=== PATIENT | female | born 2000 | race Caucasian/White ===

== ENCOUNTER 2022-03-07 19:20 | Emergency (ER) | payer BC ==
[2022-03-07 19:41] VITALS: BP 115/68; PULSE 73; TEMP 98.7; BMI 19.8
[2022-03-07] MEDS ORDERED: AZITHROMYCIN 500 MG TABLET PO ONE (20:55)
[2022-03-07] MEDS ORDERED: AZITHROMYCIN 500 MG TABLET ONE (20:57)
== END 2022-03-07 21:04 | disposition home or self-care (01) ==
LOC: FER 19:20
DX: J02.9 Acute pharyngitis, unspecified (principal)
CPT/HCPCS: 87070; 87651; 99283-25

== ENCOUNTER 2022-03-08 05:36 | Emergency (ER) | payer BC ==
[2022-03-08 05:41] VITALS: BP 109/69; PULSE 107; TEMP 99.3; BMI 19.8
[2022-03-08] MEDS ORDERED: AMPICILLIN NA/SULBACTAM NA 3 GM in SODIUM CHLORIDE 100 ML IVPB ONE (05:51)
[2022-03-08] MEDS ORDERED: methylPREDNISolone NA SUCC 125 MG/2 ML VIAL IVPB ONE (05:52)
[2022-03-08] MEDS ORDERED: methylPREDNISolone NA SUCC 125 MG/2 ML VIAL ONE (05:55)
[2022-03-08] MEDS ORDERED: AMPICILLIN NA/SULBACTAM NA 3 GM VIAL ONE (05:55)
== END 2022-03-08 06:39 | disposition home or self-care (01) ==
LOC: FER 05:36
PROC: 3E03329 Introduction of Other Anti-infective into Peripheral Vein, Percutaneous Approach (ICD-10-PCS; principal; 2022-03-08)
PROC: 3E033GC Introduction of Other Therapeutic Substance into Peripheral Vein, Percutaneous Approach (ICD-10-PCS; 2022-03-08)
DX: J36 Peritonsillar abscess (principal)
CPT/HCPCS: 99284-25

== ENCOUNTER 2022-03-11 17:09 | Emergency (ER) | payer BC ==
[2022-03-11 17:23] VITALS: BP 117/65; PULSE 72; TEMP 98.8; BMI 19.8
[2022-03-11] MEDS ORDERED: ACETAMINOPHEN 1000 MG/100 ML BAG IVPB ONE (17:33)
[2022-03-11] MEDS ORDERED: SODIUM CHLORIDE 0.9% 500 ML INFUS.BAG IV ONE (17:33)
[2022-03-11] MEDS ORDERED: KETOROLAC TROMETHAMINE 15 MG/ML VIAL IVPUSH ONE (17:33)
[2022-03-11] MEDS ORDERED: KETOROLAC TROMETHAMINE 15 MG/ML VIAL ONE (17:40)
[2022-03-11] MEDS ORDERED: ACETAMINOPHEN INJECTION 100 ML IVPB ONE (17:40)
== END 2022-03-11 18:47 | disposition home or self-care (01) ==
LOC: FER 17:09
PROC: 3E0333Z Introduction of Anti-inflammatory into Peripheral Vein, Percutaneous Approach (ICD-10-PCS; principal; 2022-03-11)
PROC: 3E0333Z Introduction of Anti-inflammatory into Peripheral Vein, Percutaneous Approach (ICD-10-PCS; 2022-03-11)
DX: J35.1 Hypertrophy of tonsils (principal)
CPT/HCPCS: 99284-25